=== PATIENT | female | born 1965 | race Two or more races ===

== ENCOUNTER → 2024-11-01 | Outpatient (CLI) | payer MEDICAID, SELFPAY ==
--- NOTE | 2024-11-01 11:15 | XR_ITS ---
Examination: Screening digital mammography, bilateral Computer aided detection 3-D breast Tomosynthesis, bilateral Date and time of exam: November 01, 2024 1133 hours Compared to mammograms dating to 03/28/2020 Indication: Screening Technique: Nonmagnified MLO, CC views of the breasts to been obtained, reconstructed from 3-D Tomosynthesis images. R2 computer aided detection program utilized for evaluation of suspicious masses and/or abnormal calcifications. 3-D Tomosynthesis images obtained. Findings: Scattered areas of fibroglandular density. Scar formation upper outer left breast consistent with patient's history treated breast cancer No interval suspicious masses Impression: BI-RADS category II: Benign Findings. Recommend 1 year follow-up mammogram.
== END | disposition home or self-care (01) ==
LOC: CDIM 11:06
PROVIDERS: Referring Provider Family Medicine; Visit Provider Family Medicine
DX: Z12.31 Encounter for screening mammogram for malignant neoplasm of breast (principal); R92.323 Mammographic fibroglandular density, bilateral breasts
CPT/HCPCS: 77063; 77067

== ENCOUNTER 2025-05-18 09:53 | Emergency (ER) | payer MEDICAID, SELFPAY ==
[2025-05-18 09:53] VITALS: BMI 33.3
[2025-05-18 10:01] VITALS: BP 179/95; PULSE 75; RESP 18; TEMP 36.9; O2SAT 98
--- NOTE | 2025-05-18 10:01 | XR_ITS ---
Examination: CT brain head without contrast. 2-D sagittal coronal reconstructions Date and time of exam: May 18, 2025, 1043 hours INDICATIONS: Generalized head pain beginning 2 weeks ago COMPARISON: December 04, 2023 CTDI: vol (mGy): 50 DLP: (mGycm): 979 Technique: Multiple CT axial sections of the brain have been obtained, 5 mm slice thickness. Contrast has not been administered. 2-D sagittal, coronal reconstructions have been obtained Low dose protocols were performed. One or more of the following dose reduction techniques were used; automated exposure control, adjustment of the mA and/or KV according to patient size, use of iterative reconstruction technique. Findings: No significant ventricular enlargement. Intra-axial or extra-axial hemorrhage density is not seen. No mass effect or midline shift Basal cisterns are not remarkable. Fourth ventricle is midline. Cranial vault intact. Impression: Negative for acute hemorrhage, mass effect or midline shift
--- NOTE | 2025-05-18 10:01 | XR_ITS ---
Examination: CT cervical spine without contrast 2-D sagittal reconstructions 2-D coronal reconstructions 3-D reconstructions. Exam date and time: May 18, 2025, 1043 hours INDICATIONS: Intermittent neck pain 2 weeks CTDI:vol (mGy) 15.1 DLP: (mGycm) 313 Technique: Multiple 2 mm axial sections of the cervical spine have been obtained. The coronal and sagittal reconstructions have been obtained. 3-D reconstructions have been obtained. Low dose protocols were performed. One or more of the following dose reduction techniques were used; automated exposure control, adjustment of the mA and/or KV according to patient size, use of iterative reconstruction technique. Findings: Axial sections demonstrate intact base of the skull. C1 exhibit satisfactory relationship to the odontoid. No acute cervical vertebral body fracture seen. Alignment posterior spinous processes satisfactory. C6-C7 moderate degenerative disc disease, mild left neural foraminal stenosis Impression: No acute cervical fracture. C6-C7 moderate degenerative disc disease, mild left neural foraminal stenosis
[2025-05-18 10:27] LABS: Basophils # (Auto) 0.0 Thou/mm3 (0.0-0.2); Basophils % (Auto) 1 % (0-2.5); Eosinophils # (Auto) 0.6 Thou/mm3 (0.0-0.5); Eosinophils % (Auto) 9 % (0-10); Hematocrit 39.5 % (36.0-46.0); Hemoglobin 12.3 g/dL (12.0-16.0); Immature Granulocytes Auto 0.03 Thou/mm3 (0.00-0.00); Lymphocytes # (Auto) 1.6 Thou/mm3 (1.0-4.8); Lymphocytes % (Auto) 23 % (10-50); Mean Corpuscular HGB Conc 31.1 g/dl (31.0-37.0); Mean Corpuscular Hemoglobin 26.6 pg (25.0-35.0); Mean Corpuscular Volume 85 fL (80-100); Monocytes # (Auto) 0.4 Thou/mm3 (0.0-0.8); Monocytes % (Auto) 6 % (0-12); Neutrophils # (Auto) 4.2 Thou/mm3 (1.8-7.7); Neutrophils % (Auto) 61 % (37-80); Nucleated Red Blood Cell # 0.00 Thou/mm3 (0.00-0.00); Nucleated Red Blood Cell % 0 /100 WBC (0); Platelet Count 385 Thou/mm3 (140-440); RDW Standard Deviation 42.5 fL (36.4-46.3); Red Blood Count 4.63 Miln/mm3 (4.00-5.20); White Blood Count 6.8 Thou/mm3 (3.6-11.0)
[2025-05-18 10:43] LABS: Alanine Aminotransferase 10 U/L (10-49); Albumin, Serum 4.7 gm/dL (3.4-4.8); Albumin/Globulin Ratio 1.7 (1.2-2.2); Alkaline Phosphatase 143 U/L (46-116); Anion Gap 10 (7-16); Aspartate Amino Transferase 14 U/L (0-34); BUN/Creatinine Ratio 15 Ratio (12-20); Bilirubin,Total 0.3 mg/dL (0.3-1.2); Blood Urea Nitrogen 12 mg/dL (9-23); Calcium 9.0 mg/dL (8.3-10.6); Calcium (Corrected) 9.0 mg/dL (8.5-10.1); Carbon Dioxide 27.4 mMol/L (20.0-31.0); Chloride 107 mMol/L (98-107); Creatinine (Component) 0.8 mg/dL (0.6-1.3); Estimated Creatinine Clearance 80.3 mL/min (>60); Globulin 2.7 gm/dL (2.3-3.5); Glucose 130 mg/dL (74-106); Osmolality,Calculated 288 (275-295); Potassium 3.9 mMol/L (3.4-5.1); Sodium 144 mMol/L (136-145); Total Protein 7.4 gm/dL (5.7-8.2); eGFR > 60 See Note
[2025-05-18] MEDS: DIAZEPAM 5 MG TABLET 10 MG PO (11:09)
--- NOTE | 2025-05-18 11:38 | PD.EDHA ---
ED Headache RME/HPI General Chief Complaint: Headache Stated Complaint: HEADACHE AND NECK PAIN X2D Time Seen by Provider: 05/18/25 11:16 Arrival date/time: 05/18/25 09:53 60-year-old female patient with hypertension as past medical history, came in for evaluation regarding posterior neck pain. Onset of symptoms for the last 2 days is worsening posterior neck pain, described as dull ache, severity moderate pain radiates to the head. Patient denies any trauma or fall denies any upper or lower extremity weakness denies any numbness to the shoulder or upper extremities or leg. Patient is ambulatory. Denies any fever. Patient is ambulatory. Related Data Home Medications ?Medication ?Instructions ?Recorded ?Confirmed aspirin 81 mg tablet 81 mg PO QDAY 06/11/20 07/15/21 atorvastatin 20 mg tablet 20 mg PO QPM 06/11/20 07/15/21 amiodarone 200 mg tablet 200 mg PO QDAY 06/12/20 07/15/21 cholecalciferol (vitamin D3) 125 125 mcg PO QDAY 08/22/20 07/15/21 mcg (5,000 unit) tablet (Vitamin D3) nitroglycerin 0.4 mg sublingual 0.4 mg buccal DAILY PRN Chest Pain 08/22/20 07/15/21 tablet omega-3 fatty acids 1,000 mg PO QDAY 08/22/20 07/15/21 telmisartan 80 1 tab PO QDAY 08/22/20 07/15/21 mg-hydrochlorothiazide 12.5 mg tablet (Micardis HCT) Previous Rx's ?Medication ?Instructions ?Recorded ibuprofen 800 mg tablet 800 mg PO TID PRN pain #30 tabs 07/31/23 cyclobenzaprine 10 mg tablet 10 mg PO BID PRN muscle spasm #20 05/18/25 tabs dexamethasone 6 mg tablet 6 mg PO QDAY #7 tabs 05/18/25 famotidine 20 mg tablet (Pepcid) 20 mg PO BID #20 tabs 05/18/25 ibuprofen 800 mg tablet 800 mg PO Q8H PRN pain #30 tabs 05/18/25 Allergies Allergy/AdvReac Type Severity Reaction Status Date / Time No Known Allergies Allergy Verified 05/18/25 09:55 Review of Systems Review of Systems Narrative Review of Systems: Review of system reviewed and within normal limits except mentioned in HPI ED Exam Narrative Physical exam: VITAL SIGNS: Reviewed. GENERAL APPEARANCE: Alert and interactive, follows commands, no acute distress, HEAD AND FACE: Non-traumatic. ENT: PERRL, pink conjunctivitis, eyelid no trauma, Mucous membrane moist. NECK: Supple, posterior neck tenderness,, no nuchal rigidity. CHEST: No tenderness, no crepitus, no paradoxical movement, no retractions. LUNGS: Clear, well ventilated, symmetric, no rales, no wheezing, no ronchi, no stridor, good breath sounds bilaterally. HEART: Regular rate, regular rhythm, no murmur, no gallops. ABDOMEN: Soft, positive bowel sounds, nondistended, no guarding, nontender, no rebound, no masses, RECTAL: Deferred. GENITAL: Deferred. NEUROLOGICAL: Gross motor function intact sensory function intact, Appropriate for age. MUSCULOSKELETAL: low back nontender, full range of motion. EXTREMITIES: Nontender, full range of motion. SKIN: Color pink, dry, no rash, no lacerations, no abrasions, no contusions. LYMPHATICS: Deferred. Course Quality Measures none Orders Category Date Time Status CT cervical spine wo con Stat Exams 05/18/25 10:[address] head/brain wo con Stat Exams 05/18/25 10:01 Completed CBC Stat Lab 05/18/25 10:15 Completed CMP [Comprehensive Metabolic Panel] Stat Lab 05/18/25 10:15 Completed Dexamethasone Inj [Decadron Inj] Med 05/18/25 11:37 Once 10 mg PO X1 ONE Diazepam [Valium] Med 05/18/25 10:02 Discontinued 10 mg PO X1 ONE Ketorolac Inj [Toradol Inj] Med 05/18/25 11:37 Once 30 mg IM X1 ONE Vital Signs Vital signs: Vital Signs Temperature 98.4 F 05/18/25 10:01 Pulse Rate 75 05/18/25 10:01 Respiratory Rate 18 05/18/25 10:01 Blood Pressure 179/95 H 05/18/25 10:01 Pulse Oximetry (%) 98 05/18/25 10:01 Oxygen Delivery Method Room Air 05/18/25 10:01 Headache MDM Narrative MDM Narrative:: 60-year-old female patient with hypertension as past medical history, came in for evaluation regarding posterior neck pain. Onset of symptoms for the last 2 days is worsening posterior neck pain, described as dull ache, severity moderate pain radiates to the head. Patient denies any trauma or fall denies any upper or lower extremity weakness denies any numbness to the shoulder or upper extremities or leg. Patient is ambulatory. Denies any fever. Patient is ambulatory. CT scan of the head came back unremarkable. CT scan of the cervical spine showed degenerative disc disease between C6 and C7 with foraminal stenosis as read by radiologist. Further imaging is not needed at this time patient is not showing any neurologic deficit at this time Patient received Toradol IM, Valium, and Decadron. I advised the patient to follow-up with spine surgeon for further management regarding his C6-C7 disc problem. SHe is stable for discharge Patient data External records reviewed:: None Clinical information provided by:: patient Social determinants that could affect healthcare access:: none Patient has the following chronic illnesses:: Hypertension How is presenting disease/condition affected by chronic disease/condition?: uneffected by Evaluation data The following diagnostics were reviewed and interpreted by me:: radiology exam(s) Lab and/or radiology exams considered but not ordered:: None Interpretation Summary: See above Medications / Prescriptions Medications or Prescriptions considered but not ordered:: None Medication administrations:: Medication Administration History Discontinued Medications Diazepam (Diazepam 5 Mg Tablet) 10 mg PO X1 ONE Stop: 05/18/25 10:03 Last Admin: 05/18/25 11:09 Dose: 10 mg Documented By: SAVITA Valium, Toradol and Decadron Consultations Consultation(s) initiated? (list below): No Diagnosis Differential diagnosis headache: tension headache and headache Most likely diagnosis given after review of the tests above:: Neck pain, degenerative disc disease cervical spine, Admission Indicated Admission indicated?: not indicated Explain why admission is indicated or not indicated:: Stable Admission Request Was there a request for admission?: No Disposition Plan Disposition Plan: Discharge Discharge Attestation Discharge Attestation: The patient was given an opportunity to ask questions and understood the discharge instructions. Discharge instructions specifically effects, indications for sooner follow up or return to the emergency department, and the expected course of current diagnosis. Patient condition: Stable Discharge Plan Plan Patient Disposition: HOME (Self Care) Prescriptions/Referrals Prescriptions/Med Rec: New cyclobenzaprine 10 mg tablet 10 mg PO BID PRN (Reason: muscle spasm) Qty: 20 0RF dexamethasone 6 mg tablet 6 mg PO QDAY Qty: 7 0RF ibuprofen 800 mg tablet 800 mg PO Q8H PRN (Reason: pain) Qty: 30 0RF famotidine [Pepcid] 20 mg tablet 20 mg PO BID Qty: 20 0RF No Action atorvastatin 20 mg Tablet 20 mg PO QPM aspirin 81 mg Tablet 81 mg PO QDAY amiodarone 200 mg Tablet 200 mg PO QDAY telmisartan-hydrochlorothiazid [Micardis HCT] 80-12.5 mg Tablet 1 tab PO QDAY nitroglycerin 0.4 mg Tablet, Sublingual 0.4 mg BUCCAL DAILY PRN (Reason: Chest Pain) omega-3 fatty acids Capsule 1,000 mg PO QDAY cholecalciferol (vitamin D3) [Vitamin D3] 125 mcg (5,000 unit) Tablet 125 mcg PO QDAY ibuprofen 800 mg tablet 800 mg PO TID PRN (Reason: pain) Qty: 30 0RF Referrals: Pierre Orr PA-C [Primary Care Provider] - In 1 week Problem List Clinical Impression: Headache, Degenerative disc disease, cervical Patient/Caregiver Discharge Instructions Discharge Activity: activity as tolerated Education Materials: Spine Cervical Probs Tx Additional Instructions: Thank you for the opportunity for serving you today. You are stable for discharged . You are advised to: Follow-up with your PCP in 1 to 2 days for referral to spine surgeon Return to ED for worsening of symptoms Increase oral fluids Take medication as prescribed Print Language: Uzbek Stand Alone Forms: Jayla Award Info., Patient Portal Info Letter PATRICIA Supervising Physician PATRICIA Supervising Physician: MD Tyler
[2025-05-18] MEDS: DEXAMETHASONE SOD PHOS INJ 10 MG/ML VIAL PO (11:51)
[2025-05-18] MEDS: KETOROLAC INJ 30 MG/ML VIAL IM (11:51)
[2025-05-18 12:03] VITALS: BP 136/87; PULSE 67; RESP 16; O2SAT 96
== END 2025-05-18 12:04 | disposition home or self-care (01) ==
PROVIDERS: Nurse Practitioner Primary Care; Emergency Provider Family Medicine; PCP Family Medicine
DX: M50.30 Other cervical disc degeneration, unspecified cervical region (principal); I10 Essential (primary) hypertension
CPT/HCPCS: 36415; 70450; 72125; 80053; 85025; 96372; 99283; J1100; J1885; A9270